=== PATIENT | female | born 1960 | race Caucasian/White ===

== ENCOUNTER 2018-03-10 10:11 | Emergency (ER) | payer OTHER ==
[~2018-03-10] VITALS: Ht 167.6 cm; Wt 89.7 kg
[~2018-03-10 10:11] MED LIST: LORTAB 5-325 M1 EACH PO
[2018-03-10] MEDS ORDERED: PERCOCET 5/31 TABLET PO (11:23)
[2018-03-10 11:37] VITALS: BP 130/65
== END 2018-03-10 11:54 | disposition home or self-care (01) ==
LOC: EME 10:11
PROC: 2W3RX1Z Immobilization of Left Lower Leg using Splint (ICD-10-PCS; principal; 2018-03-10)
DX: S92.352A Displaced fracture of fifth metatarsal bone, left foot, initial encounter for closed fracture (principal); W10.9XXA Fall (on) (from) unspecified stairs and steps, initial encounter; X50.1XXA Overexertion from prolonged static or awkward postures, initial encounter; Z72.0 Tobacco use
CPT/HCPCS: 73610; 73630; 99281; 99283